=== PATIENT | male | born 1970 | race African-American/Black ===

== ENCOUNTER 2021-08-25 21:17 | Emergency (ER) | payer MEDICAID ==
[~2021-08-25] VITALS: Ht 177.8 cm; Wt 100.0 kg
[2021-08-25 22:16] VITALS: BP 112/67
== END 2021-08-25 22:17 | disposition home or self-care (01) ==
LOC: EDBD 21:17 → ER 21:17
DX: T40.991A Poisoning by other psychodysleptics [hallucinogens], accidental (unintentional), initial encounter (principal); G92.8 Other toxic encephalopathy; F16.129 Hallucinogen abuse with intoxication, unspecified; R45.1 Restlessness and agitation; R03.0 Elevated blood-pressure reading, without diagnosis of hypertension; I45.2 Bifascicular block; Y93.89 Activity, other specified; Y92.007 Garden or yard of unspecified non-institutional (private) residence as the place of occurrence of the external cause
CPT/HCPCS: 93005; 99283

== ENCOUNTER 2021-09-02 11:28 | Emergency (ER) | payer MEDICAID ==
[~2021-09-02] VITALS: Ht 180.3 cm; Wt 120.0 kg
[2021-09-02 11:31] VITALS: BP 154/89
== END 2021-09-02 12:21 | disposition left against medical advice (07) ==
LOC: ER 11:56
DX: S00.81XA Abrasion of other part of head, initial encounter (principal); X58.XXXA Exposure to other specified factors, initial encounter; Y93.89 Activity, other specified; Y92.89 Other specified places as the place of occurrence of the external cause; Y99.8 Other external cause status
CPT/HCPCS: 99283